=== PATIENT | male | born 1960 | race Caucasian/White ===

== ENCOUNTER 2018-07-19 09:44 | Emergency (ER) | payer SELFPAY ==
[~2018-07-19] VITALS: Ht 175.3 cm; Wt 80.3 kg
[2018-07-19 09:53] VITALS: BP 111/63
[2018-07-19] MEDS ORDERED: LISI-167 PO (10:13)
[2018-07-19] MEDS ORDERED: POTA20TA6 PO (10:16)
[2018-07-19] MEDS ORDERED: ATOR40TA78 PO (10:16)
[2018-07-19] MEDS ORDERED: ASPI-496 PO (10:16)
[2018-07-19] MEDS ORDERED: FURO-93 PO (10:16)
[2018-07-19] MEDS ORDERED: CARV12.52 PO (10:16)
[2018-07-19] MEDS ORDERED: METF850T2 PO (10:16)
[2018-07-19] MEDS ORDERED: DEXAMETHASONE 4 MG/ML, 1ML ONE (10:21)
[2018-07-19] MEDS ORDERED: DEXAMETHASONE 4 MG/ML, 1ML PO ONE (10:30)
== END 2018-07-19 10:33 | disposition home or self-care (01) ==
LOC: ED 10:30
DX: J02.0 Streptococcal pharyngitis (principal); I10 Essential (primary) hypertension; E11.9 Type 2 diabetes mellitus without complications; Z87.891 Personal history of nicotine dependence
CPT/HCPCS: 99283; J1100